=== PATIENT | male | born 1970 | race Caucasian/White ===

== ENCOUNTER 2022-12-08 09:36 | Emergency (ER) | payer MEDICAID ==
[~2022-12-08] VITALS: Ht 167.6 cm; Wt 89.1 kg
[2022-12-08 09:43] VITALS: TEMP 97.6
--- NOTE | 2022-12-08 09:53 | NUR ---
PT STATES HE IS 5/ 10 PAIN AND DOES NOT HAVE ANY MAJOR HEALTH ISSUES PT STATES ITS LOWER ABDOMINAL AND HASNT BEEN ABLE TO KEEP ANYTHING DOWN SO HE HAS BEEN TRYING TO DRINK MILK BM 2 DAYS AGO.
[2022-12-08 10:23] LABS: BASOPHILS # (AUTO) 0.1 X10'3 (0-0.2); BASOPHILS % (AUTO) 0.4 % (0-1); EOSINOPHILS % (AUTO) 0 % (0-6); HEMATOCRIT 49.9 % (42.0-52.0); HEMOGLOBIN 17.2 g/dl (14.0-17.9); LYMPHOCYTES # (AUTO) 1.1 X10'3 (1.1-4.8); LYMPHOCYTES % (AUTO) 7.8 % (21-51); MEAN CORPUSCULAR HEMOGLOBIN 31.1 PG (27.0-31.0); MEAN CORPUSCULAR HGB CONC 34.5 g/dL (33.0-36.5); MEAN CORPUSCULAR VOLUME 90.2 FL (78-98); MEAN PLATELET VOLUME 7.8 FL (7.4-10.4); MONOCYTES # (AUTO) 1.1 X10'3 (0-0.9); MONOCYTES % (AUTO) 7.9 % (2-12); NEUTROPHILS # (AUTO) 12.3 X10'3 (1.8-7.7); NEUTROPHILS % (AUTO) 83.9 % (42-75); PLATELET COUNT 333 X10'3 (140-440); RED BLOOD COUNT 5.53 X10'6 (4.70-6.10); WHITE BLOOD COUNT 14.6 X10'3 (4.5-11.0)
--- NOTE | 2022-12-08 10:26 | NUR ---
dr dwyer notified of [facility] [place] [facility]
[2022-12-08 10:38] LABS: ALANINE AMINOTRANSFERASE 34 U/L (12-78); ALBUMIN 4.1 G/DL (3.4-5.0); ALBUMIN/GLOBULIN RATIO 0.9 (1.1-1.5); ALKALINE PHOSPHATASE 88 IU/L (46-116); AMYLASE 57 U/L (25-115); ANION GAP 13 (8-16); ASPARTATE AMINO TRANSFERASE 33 U/L (10-37); BILIRUBIN,TOTAL 0.8 MG/DL (0.1-1.0); BLOOD UREA NITROGEN 21 MG/DL (7-18); BUN/CREATININE RATIO 10.9 (10.0-20.0); CALCIUM 10.2 MG/DL (8.5-10.1); CHLORIDE 96 MMOL/L (99-107); CREATININE 1.92 MG/DL (0.60-1.10); GLUCOSE 170 MG/DL (70-104); POTASSIUM 4.3 MMOL/L (3.5-5.1); SODIUM 132 MMOL/L (135-145); TOTAL CARBON DIOXIDE 22.7 MMOL/L (24-32); TOTAL PROTEIN 8.7 G/DL (6.4-8.2); eCRCL 40 ML/MIN; eGFR 37 ML/MIN
[2022-12-08 10:41] LABS: LIPASE 29 U/L (16-77)
[2022-12-08] MEDS ORDERED: morphine 4 MG/ML inj SYRINge IV ONE (11:05)
[2022-12-08] MEDS ORDERED: ondansetron/PF 4mg/2ml inj IV ONE (11:05)
[2022-12-08] MEDS ORDERED: normal saline 1000ML IV soln IVB ONE (11:05)
[2022-12-08] MEDS ORDERED: tamsulosin 0.4mg capsule PO STA (12:22)
[2022-12-08] MEDS ORDERED: ketorolac trometh. 30mg/ml inj. IV ONE (12:25)
[2022-12-08] MEDS ORDERED: ketorolac tromethamine 15mg/ml inj. IV ONE (12:25)
[2022-12-08 13:12] LABS: BILIRUBIN,URINE NEGATIVE (Neg); CLARITY,URINE CLEAR (Clear); COLOR,URINE YELLOW (Yellow); GLUCOSE, URINE 100 mg/dl (Neg); KETONES,URINE NEGATIVE (Neg); LEUKOCYTE ESTERASE ,URINE NEGATIVE (Neg); NITRITES, URINE NEGATIVE (Neg); OCCULT BLOOD,URINE SMALL (Neg); PROTEIN,URINE 30 mg/dl (Neg); UROBILINOGEN,URINE 0.2 E.U/dL (0.2-1.0)
[2022-12-08 13:22] LABS: UA COLLECTION TYPE VOIDED
[2022-12-08 13:24] LABS: SQUAMOUS EPITHELIAL CELL,UR FEW /LPF (FEW); WBC,URINE 0-4 /HPF (0-4)
[2022-12-08 13:25] LABS: BACTERIA,URINE NONE SEEN /HPF (Neg)
[2022-12-08] MEDS ORDERED: IBUP-1986 PO ×2 (13:54)
[2022-12-08] MEDS ORDERED: HYDR-3973 PO ×2 (13:54)
[2022-12-08] MEDS ORDERED: FLO0.4C PO (13:54)
[2022-12-08 14:09] VITALS: BP 165/115; PULSE 82; RESP 18; O2SAT 99
== END 2022-12-08 14:11 | disposition home or self-care (01) ==
LOC: ER 09:37
DX: N20.0 Calculus of kidney (principal)
CPT/HCPCS: 36415; 74176; 80053; 81001; 82150; 83690; 85025; 96361; 96374; 96375; 99285; J1885; J2270; J2405; J7030

== ENCOUNTER 2022-12-09 09:19 | Inpatient (IN) | payer MEDICAID ==
[~2022-12-09] VITALS: Ht 167.6 cm; Wt 89.1 kg
[~2022-12-09 09:19] MED LIST: FLO0.4C PO; HYDR-3973 PO; IBUP-1986 PO
--- NOTE | 2022-12-09 10:01 | NUR ---
MSE COMPLETE BY DR ROBLEDO
[2022-12-09] MEDS ORDERED: ketorolac trometh. 30mg/ml inj. IV ONE (10:05)
[2022-12-09] MEDS ORDERED: normal saline 1000ML IV soln IVB ONE ×2 (10:05→11:50)
[2022-12-09 10:37] LABS: BASOPHILS # (AUTO) 0.1 X10'3 (0-0.2); BASOPHILS % (AUTO) 0.4 % (0-1); EOSINOPHILS % (AUTO) 0.1 % (0-6); HEMATOCRIT 46.7 % (42.0-52.0); HEMOGLOBIN 16.1 g/dl (14.0-17.9); LYMPHOCYTES # (AUTO) 1.1 X10'3 (1.1-4.8); LYMPHOCYTES % (AUTO) 8.6 % (21-51); MEAN CORPUSCULAR HEMOGLOBIN 31.3 PG (27.0-31.0); MEAN CORPUSCULAR HGB CONC 34.4 g/dL (33.0-36.5); NEUTROPHILS # (AUTO) 10.8 X10'3 (1.8-7.7); NEUTROPHILS % (AUTO) 82.9 % (42-75); PLATELET COUNT 281 X10'3 (140-440); RED BLOOD COUNT 5.13 X10'6 (4.70-6.10); RED CELL DISTRIBUTION WIDTH 13.8 % (11.5-14.5); WHITE BLOOD COUNT 13.1 X10'3 (4.5-11.0)
[2022-12-09] MEDS ORDERED: morphine 10mg/ml inj. IV ONE (10:45)
[2022-12-09 10:56] LABS: ALANINE AMINOTRANSFERASE 28 U/L (12-78); ALBUMIN/GLOBULIN RATIO 0.9 (1.1-1.5); ALKALINE PHOSPHATASE 81 IU/L (46-116); AMYLASE 140 U/L (25-115); ANION GAP 7 (8-16); ASPARTATE AMINO TRANSFERASE 24 U/L (10-37); BILIRUBIN,TOTAL 0.9 MG/DL (0.1-1.0); BLOOD UREA NITROGEN 38 MG/DL (7-18); BUN/CREATININE RATIO 15.9 (10.0-20.0); CALCIUM 9.9 MG/DL (8.5-10.1); CHLORIDE 97 MMOL/L (99-107); CREATININE 2.39 MG/DL (0.60-1.10); GLUCOSE 170 MG/DL (70-104); LIPASE 73 U/L (16-77); POTASSIUM 4.5 MMOL/L (3.5-5.1); SODIUM 131 MMOL/L (135-145); TOTAL CARBON DIOXIDE 27.4 MMOL/L (24-32); TOTAL PROTEIN 8.4 G/DL (6.4-8.2); eCRCL 32 ML/MIN; eGFR 28 ML/MIN
[2022-12-09] MEDS ORDERED: HYDROmorphone inj. 0.5 MG/0.5 ML DISP.SYRIN IV PRN (13:00)
[2022-12-09] MEDS ORDERED: potassium Cl 40MEQ/1/2NS 520ml 520 ML IV PRN (13:00)
[2022-12-09] MEDS ORDERED: ondansetron/PF 4mg/2ml inj IV PRN (13:00)
[2022-12-09] MEDS ORDERED: mag hydrox/Alum hydrox/simeth 30ml oral suspension PO PRN (13:00)
[2022-12-09] MEDS ORDERED: magnesium 4gm in 100ml NS 100 ML IV PRN (13:00)
[2022-12-09] MEDS ORDERED: CefTRIAXone/D5W-Rocephin 1gm 50 ML IV ONE (13:00)
[2022-12-09] MEDS ORDERED: acetaminophen 325mg tablet PO PRN (13:00)
[2022-12-09] MEDS ORDERED: HYDROmorphone/PF 0.2 MG/ML SYRINGE IV PRN (13:00)
[2022-12-09] MEDS ORDERED: potassium Cl 20 mEq SR tablet PO PRN ×2 (13:00)
[2022-12-09] MEDS ORDERED: magnesium 2GM in 50ml NS 50 ML IV PRN (13:00)
[2022-12-09 13:46] LABS: ALANINE AMINOTRANSFERASE 24 U/L (12-78); ALBUMIN 3.2 G/DL (3.4-5.0); ALBUMIN/GLOBULIN RATIO 0.8 (1.1-1.5); ALKALINE PHOSPHATASE 67 IU/L (46-116); ANION GAP 8 (8-16); ASPARTATE AMINO TRANSFERASE 24 U/L (10-37); BILIRUBIN,TOTAL 0.6 MG/DL (0.1-1.0); BLOOD UREA NITROGEN 34 MG/DL (7-18); BUN/CREATININE RATIO 15.9 (10.0-20.0); CALCIUM 9.4 MG/DL (8.5-10.1); CHLORIDE 103 MMOL/L (99-107); CREATININE 2.14 MG/DL (0.60-1.10); GLUCOSE 123 MG/DL (70-104); POTASSIUM 4.7 MMOL/L (3.5-5.1); SODIUM 134 MMOL/L (135-145); TOTAL CARBON DIOXIDE 23.1 MMOL/L (24-32); eCRCL 36 ML/MIN; eGFR 32 ML/MIN
--- NOTE | 2022-12-09 13:50 | NUR ---
I have received report from Tatianna FELICIANO and had the opportunity to ask questions and assume patient care.
--- NOTE | 2022-12-09 14:00 | NUR ---
Assumed patient care, patient oriented to room, call light system and fall precautions. VSS, pt alert and appropriate at the time of admission. Declined 2 Nurse Skin check.
[2022-12-09] MEDS: phenazopyridine 100mg tablet PO SCH ×2 (14:07→21:51)
[2022-12-09 14:10] VITALS: BP 139/87; PULSE 72; RESP 18; TEMP 99.2; O2SAT 99
[2022-12-09 14:29] VITALS: RESP 18; O2SAT 99
[2022-12-09 14:55] VITALS: RESP 18; O2SAT 99
[2022-12-09] MEDS ORDERED: oxyCODONE IR 5mg (immed. release) tablet PO SCH (16:00)
[2022-12-09] MEDS: normal saline 1000ml 1,000 ML IV SCH ×2 (16:27→23:00)
[2022-12-09 18:00] VITALS: BP 153/97; PULSE 82; RESP 16; TEMP 99.2; O2SAT 97
[2022-12-09] MEDS ORDERED: oxyCODONE IR 5mg (immed. release) tablet PO PRN (19:00)
[2022-12-09] MEDS: K and/or MAG REPLACEMENT MC SCH (20:00)
[2022-12-09] MEDS ORDERED: tamsulosin 0.4mg capsule PO SCH (21:00)
[2022-12-09 21:44] LABS: BILIRUBIN,URINE NEGATIVE (Neg); CLARITY,URINE CLEAR (Clear); COLOR,URINE ORANGE (Yellow); GLUCOSE, URINE 100 mg/dl (Neg); KETONES,URINE NEGATIVE (Neg); LEUKOCYTE ESTERASE ,URINE NEGATIVE (Neg); NITRITES, URINE POSITIVE (Neg); OCCULT BLOOD,URINE NEGATIVE (Neg); PH,URINE 5.5 (4.8-8.0); PROTEIN,URINE 30 mg/dl (Neg)
[2022-12-09] MEDS: docusate sod 100mg capsule PO SCH (21:51)
[2022-12-09] MEDS: tamsulosin 0.4mg capsule PO SCH (21:51)
[2022-12-09] MEDS: enoxaparin 40mg/0.4ml syringe SQ SCH (21:53)
[2022-12-09 22:00] VITALS: BP 151/101; PULSE 84; RESP 18; TEMP 99.2; O2SAT 97
[2022-12-09 22:07] LABS: UA COLLECTION TYPE OTHER
[2022-12-09 22:08] LABS: SQUAMOUS EPITHELIAL CELL,UR NONE SEEN /LPF (FEW)
[2022-12-09 22:09] LABS: BACTERIA,URINE FEW /HPF (Neg); RBC,URINE NONE SEEN /HPF (0-2); WBC,URINE NONE SEEN /HPF (0-4)
[2022-12-09] MEDS ORDERED: hydrALAZINE 20mg/ml inj. IV PRN (22:35)
--- NOTE | 2022-12-09 22:35 | NUR ---
Called Dr. Briscoe for elevated b/p of 151/101 and 159/109 received order for b/p medicine.
[2022-12-09 23:00] VITALS: BP 135/67
[2022-12-10] MEDS: normal saline 1000ml 1,000 ML IV SCH ×2 (02:07→09:28)
--- NOTE | 2022-12-10 02:51 | NUR ---
Agree with Lora Chapman LVN orientee assessments and medication administrations except where I documented my findings.
[2022-12-10 06:00] VITALS: BP 131/74; PULSE 94; RESP 17; TEMP 98.1; O2SAT 95
--- NOTE | 2022-12-10 06:09 | NUR ---
Patient in room ORTHO 4021. I have received report from Zeinab and had the opportunity to ask questions and assume patient care.
[2022-12-10 06:10] LABS: BASOPHILS % (AUTO) 0.6 % (0-1); EOSINOPHILS # (AUTO) 0.1 X10'3 (0-0.9); EOSINOPHILS % (AUTO) 0.8 % (0-6); HEMATOCRIT 40.6 % (42.0-52.0); HEMOGLOBIN 13.8 g/dl (14.0-17.9); LYMPHOCYTES # (AUTO) 1.5 X10'3 (1.1-4.8); LYMPHOCYTES % (AUTO) 19.5 % (21-51); MEAN CORPUSCULAR HEMOGLOBIN 31.1 PG (27.0-31.0); MEAN CORPUSCULAR HGB CONC 34.1 g/dL (33.0-36.5); MEAN CORPUSCULAR VOLUME 91.3 FL (78-98); MEAN PLATELET VOLUME 8.1 FL (7.4-10.4); MONOCYTES # (AUTO) 0.9 X10'3 (0-0.9); MONOCYTES % (AUTO) 11.2 % (2-12); NEUTROPHILS # (AUTO) 5.1 X10'3 (1.8-7.7); NEUTROPHILS % (AUTO) 67.9 % (42-75); PLATELET COUNT 215 X10'3 (140-440); RED BLOOD COUNT 4.44 X10'6 (4.70-6.10); RED CELL DISTRIBUTION WIDTH 13.8 % (11.5-14.5); WHITE BLOOD COUNT 7.6 X10'3 (4.5-11.0)
--- NOTE | 2022-12-10 06:33 | NUR ---
Problems reprioritized. Patient report given, questions answered & plan of care reviewed with Cinthia.
[2022-12-10 06:37] LABS: ALANINE AMINOTRANSFERASE 24 U/L (12-78); ALBUMIN 2.7 G/DL (3.4-5.0); ALBUMIN/GLOBULIN RATIO 0.8 (1.1-1.5); ALKALINE PHOSPHATASE 59 IU/L (46-116); ANION GAP 10 (8-16); ASPARTATE AMINO TRANSFERASE 16 U/L (10-37); BILIRUBIN,TOTAL 0.6 MG/DL (0.1-1.0); BLOOD UREA NITROGEN 30 MG/DL (7-18); BUN/CREATININE RATIO 15.2 (10.0-20.0); CALCIUM 8.7 MG/DL (8.5-10.1); CHLORIDE 104 MMOL/L (99-107); CREATININE 1.98 MG/DL (0.60-1.10); GLUCOSE 98 MG/DL (70-104); POTASSIUM 4.1 MMOL/L (3.5-5.1); SODIUM 136 MMOL/L (135-145); TOTAL CARBON DIOXIDE 21.9 MMOL/L (24-32); TOTAL PROTEIN 6.3 G/DL (6.4-8.2); eCRCL 38 ML/MIN; eGFR 35 ML/MIN
--- NOTE | 2022-12-10 07:35 | NUR ---
Patient in room ORTHO 4021B. I have received report from RADHA ALMANZAR RN and had the opportunity to ask questions and assume patient care.
[2022-12-10] MEDS: K and/or MAG REPLACEMENT MC SCH ×2 (09:25→20:00)
[2022-12-10] MEDS: docusate sod 100mg capsule PO SCH ×2 (09:27→20:27)
[2022-12-10] MEDS: CefTRIAXone/D5W-Rocephin 1gm 50 ML IV SCH (09:27)
[2022-12-10] MEDS: phenazopyridine 100mg tablet PO SCH ×3 (09:27→20:28)
[2022-12-10 10:00] VITALS: BP 154/92; PULSE 66; RESP 15; TEMP 98.9; O2SAT 97
[2022-12-10] MEDS: sodium bicarbonate (8.4%) inj. 50 MEQ in dextrose 5%-water 1,000 ML IV SCH (17:26)
[2022-12-10 18:00] VITALS: BP 133/78; PULSE 82; RESP 16; TEMP 97.6; O2SAT 96
--- NOTE | 2022-12-10 18:44 | NUR ---
Problems reprioritized. Patient report given, questions answered & plan of care reviewed with ARELY BEARDEN.
--- NOTE | 2022-12-10 18:45 | NUR ---
Patient in room ORTHO 4021. I have received report from Cinthia MCGEE and had the opportunity to ask questions and assume patient care.
[2022-12-10 19:50] VITALS: RESP 16; O2SAT 96
[2022-12-10] MEDS: tamsulosin 0.4mg capsule PO SCH (20:27)
[2022-12-10] MEDS: enoxaparin 40mg/0.4ml syringe SQ SCH (20:28)
[2022-12-10 22:00] VITALS: BP 157/92; PULSE 75; RESP 16; TEMP 99.4; O2SAT 95
[2022-12-11] MEDS: sodium bicarbonate (8.4%) inj. 50 MEQ in dextrose 5%-water 1,000 ML IV SCH (02:41)
[2022-12-11 06:00] VITALS: BP 149/88; PULSE 69; RESP 16; TEMP 99.2; O2SAT 96
[2022-12-11 06:11] LABS: BASOPHILS # (AUTO) 0.1 X10'3 (0-0.2); EOSINOPHILS # (AUTO) 0.2 X10'3 (0-0.9); EOSINOPHILS % (AUTO) 4.2 % (0-6); HEMATOCRIT 38.2 % (42.0-52.0); HEMOGLOBIN 13.2 g/dl (14.0-17.9); LYMPHOCYTES # (AUTO) 1.8 X10'3 (1.1-4.8); LYMPHOCYTES % (AUTO) 32.6 % (21-51); MEAN CORPUSCULAR HEMOGLOBIN 31.5 PG (27.0-31.0); MEAN CORPUSCULAR HGB CONC 34.5 g/dL (33.0-36.5); MEAN CORPUSCULAR VOLUME 91.3 FL (78-98); MEAN PLATELET VOLUME 7.5 FL (7.4-10.4); MONOCYTES # (AUTO) 0.7 X10'3 (0-0.9); MONOCYTES % (AUTO) 12.1 % (2-12); NEUTROPHILS # (AUTO) 2.7 X10'3 (1.8-7.7); NEUTROPHILS % (AUTO) 50.1 % (42-75); PLATELET COUNT 217 X10'3 (140-440); RED BLOOD COUNT 4.19 X10'6 (4.70-6.10); RED CELL DISTRIBUTION WIDTH 13.4 % (11.5-14.5); WHITE BLOOD COUNT 5.4 X10'3 (4.5-11.0)
[2022-12-11 06:29] LABS: ALANINE AMINOTRANSFERASE 23 U/L (12-78); ALBUMIN 2.6 G/DL (3.4-5.0); ALBUMIN/GLOBULIN RATIO 0.8 (1.1-1.5); ALKALINE PHOSPHATASE 55 IU/L (46-116); ANION GAP 5 (8-16); ASPARTATE AMINO TRANSFERASE 14 U/L (10-37); BILIRUBIN,TOTAL 0.5 MG/DL (0.1-1.0); BLOOD UREA NITROGEN 15 MG/DL (7-18); BUN/CREATININE RATIO 11.6 (10.0-20.0); CALCIUM 8.1 MG/DL (8.5-10.1); CHLORIDE 104 MMOL/L (99-107); CREATININE 1.29 MG/DL (0.60-1.10); GLUCOSE 113 MG/DL (70-104); MAGNESIUM 1.9 MG/DL (1.5-2.4); POTASSIUM 3.9 MMOL/L (3.5-5.1); SODIUM 135 MMOL/L (135-145); TOTAL CARBON DIOXIDE 26.2 MMOL/L (24-32); eCRCL 59 ML/MIN; eGFR 58 ML/MIN
--- NOTE | 2022-12-11 06:45 | NUR ---
Problems reprioritized. Patient report given, questions answered & plan of care reviewed with Mary Ann PHILLIP.
[2022-12-11 07:05] VITALS: O2SAT 96
[2022-12-11] MEDS: CefTRIAXone/D5W-Rocephin 1gm 50 ML IV SCH (07:27)
[2022-12-11 08:00] VITALS: RESP 16; O2SAT 96
[2022-12-11] MEDS: K and/or MAG REPLACEMENT MC SCH (08:00)
[2022-12-11] MEDS: phenazopyridine 100mg tablet PO SCH (08:09)
[2022-12-11] MEDS: docusate sod 100mg capsule PO SCH (08:09)
[2022-12-11 10:00] VITALS: BP 143/89; PULSE 82; RESP 16; TEMP 99.3; O2SAT 96
[2022-12-11] MEDS ORDERED: PHEN-786 PO (10:47)
[2022-12-11] MEDS ORDERED: ONDA4TAB12 PO (10:47)
[2022-12-11 11:08] VITALS: RESP 18
--- NOTE | 2022-12-11 11:40 | NUR ---
Patient discharged home via POV. All personal belongings sent with. PIV discontinued with tip intact. Patient alert and appropriate at the time of discharge.
[2022-12-12 22:35] LABS: HBSAG SCREEN Negative (Negative); HEP B CORE AB, IGM Negative (Negative); HEP B CORE AB, TOT Negative (Negative)
== END 2022-12-11 11:40 | disposition home or self-care (01) | DRG 465 ==
LOC: ER 09:19 → ED HOLD 13:06 → ORTHO 4S 13:40
PROVIDERS: ADMIT Family Medicine; ATTEND Family Medicine
DX: N20.2 Calculus of kidney with calculus of ureter (principal); N17.0 Acute kidney failure with tubular necrosis; E86.9 Volume depletion, unspecified; E87.1 Hypo-osmolality and hyponatremia
CPT/HCPCS: 36415; 80053; 81001; 82150; 83690; 83735; 85025; 86704; 86705; 87081; 87088; 87340; 96374; 96375; 99285; G0378; J0360; J0696; J1650; J1885; J2274; J2405; J3490; J7030; J7070

== ENCOUNTER 2023-04-11 18:26 | Emergency (ER) | payer MEDICAID ==
[~2023-04-11] VITALS: Ht 167.6 cm; Wt 80.0 kg
[~2023-04-11 18:26] MED LIST changes: -FLO0.4C PO; -HYDR-3973 PO; -IBUP-1986 PO; +ONDA4TAB12 PO; +PHEN-786 PO
[2023-04-11 18:46] VITALS: TEMP 98.2
[2023-04-11] MEDS ORDERED: ibuprofen tablet 400 MG TABLET PO ONE (23:20)
[2023-04-11] MEDS ORDERED: IBUP-1986 PO (23:21)
[2023-04-11] MEDS: ibuprofen tablet 400 MG TABLET PO ONE (23:25)
[2023-04-11] MEDS: acetaminophen 325mg tablet PO ONE (23:25)
[2023-04-11 23:30] VITALS: BP 133/88; PULSE 87; RESP 15; O2SAT 98
== END 2023-04-11 23:32 | disposition home or self-care (01) ==
LOC: ER 18:27
DX: M25.562 Pain in left knee (principal); F12.10 Cannabis abuse, uncomplicated
CPT/HCPCS: 73562; 99283